=== PATIENT | female | born 1985 | race African-American/Black ===

== ENCOUNTER → 2017-10-26 | Outpatient (CLI) | payer OTHER ==
[~2017-10-26] MED LIST: ALBU90OI INH; AMOX500 PO; BENZ100A PO; Bactrim Ds Tab1 EACH PO; Bactroban22 GM TOP; CEPH500 PO; Cleocin HCl300 MG PO; FLUC150A PO; Flexeril 10 mg10 MG PO; HYDACE5 PO; IBUP800 PO; Motrin600 MG PO; Naprosyn500 MG PO; PENVK500 PO; PRED10 PO; PROCODE120 PO; PSEU120ER PO; Percocet 5-3251 EACH PO; Phenergan Vc-C120 ML PO; Prednisone20 MG PO; Pyridium200 MG PO; RXHYDACE PO; RXTRAM50 PO; TRAM50 PO; TRIM250 PO; Ultram50 MG PO; Zofran Odt4 MG SL; [UNRECOGNIZED DRUG - REMARK]
[2017-10-27 12:44] LABS: Appearance, Urine Cloudy (Clear); Bilirubin, Urine Neg (Neg); Blood, Urine 2+ (Neg); Color, Urine Yellow (P-Yellow); Glucose Qualitative, Urine Neg (Neg); Ketones, Urine Neg (Neg); Leukocyte Esterase, Urine 3+ (Neg); Nitrite, Urine Neg (Neg); Protein, Urine Neg (Neg); Specific Gravity, Urine 1.025 (1.003-1.022); Urobilinogen, Urine NORM (Normal)
[2017-10-27 13:08] LABS: Red Blood Cells, Urine 0-2 /hpf (0-2)
[2017-10-27 13:10] LABS: Amorphous Heavy (0-Heavy)
[2017-10-27 13:11] LABS: Yeast/Fungi Urine Few /hpf
[2017-10-27 13:17] LABS: Squamous Epithelial Cells Mod /hpf (Few)
[2017-10-27 13:18] LABS: Bacteria Few /hpf
[2017-10-27 14:39] LABS: Candida species (DNA Probe) Positive (NEGATIVE); G. vaginalis (DNA Probe) Positive (NEGATIVE); T. vaginalis (DNA Probe) Negative (NEGATIVE)
== END ==
LOC: LAB 18:20
PROVIDERS: Nurse Practitioner Family
DX: N89.8 Other specified noninflammatory disorders of vagina (principal)
CPT/HCPCS: 81001; 87086; 87480; 87510; 87660

== ENCOUNTER 2017-11-19 07:33 | Emergency (ER) | payer OTHER ==
[~2017-11-19] VITALS: Ht 160 cm; Wt 86.2 kg
[~2017-11-19 07:33] MED LIST changes: -PSEU120ER PO; -Phenergan Vc-C120 ML PO; -Prednisone20 MG PO
[2017-11-19] MEDS ORDERED: Phenergan Vc-C120 ML PO (07:56)
[2017-11-19] MEDS ORDERED: PSEU120ER PO (07:56)
[2017-11-19] MEDS ORDERED: Prednisone20 MG PO (07:56)
== END 2017-11-19 08:09 | disposition home or self-care (01) ==
LOC: ER 07:33
DX: J20.9 Acute bronchitis, unspecified (principal); F17.200 Nicotine dependence, unspecified, uncomplicated
CPT/HCPCS: 99283

== ENCOUNTER 2018-02-16 00:22 | Emergency (ER) | payer OTHER ==
[~2018-02-16] VITALS: Ht 160 cm; Wt 86.2 kg
[~2018-02-16 00:22] MED LIST changes: +PSEU120ER PO; +Phenergan Vc-C120 ML PO; +Prednisone20 MG PO
[2018-02-16] MEDS ORDERED: Bactrim Ds Tab1 EACH PO (01:53)
== END 2018-02-16 02:06 | disposition home or self-care (01) ==
LOC: ER 00:22
DX: L03.113 Cellulitis of right upper limb (principal); Z79.2 Long term (current) use of antibiotics; F17.200 Nicotine dependence, unspecified, uncomplicated
CPT/HCPCS: 90471; 90714; 99283

== ENCOUNTER 2018-12-03 23:03 | Emergency (ER) | payer OTHER ==
[~2018-12-03] VITALS: Ht 160 cm; Wt 99.8 kg
== END 2018-12-04 00:56 | disposition home or self-care (01) ==
LOC: ER 23:03
DX: S76.102A Unspecified injury of left quadriceps muscle, fascia and tendon, initial encounter (principal); M25.511 Pain in right shoulder; F17.200 Nicotine dependence, unspecified, uncomplicated; V43.52XA Car driver injured in collision with other type car in traffic accident, initial encounter
CPT/HCPCS: 29505; 73010; 73562-LT; 96372-59; 99284-25; J1885

== ENCOUNTER → 2019-02-11 | Outpatient (CLI) | payer OTHER ==
[~2019-02-11] MED LIST changes: +CRUTCH4 XX
== END | disposition home or self-care (01) ==
LOC: LAB SHORT 18:24 → LAB 18:24
DX: N89.8 Other specified noninflammatory disorders of vagina (principal)
CPT/HCPCS: 87086

== ENCOUNTER 2019-02-25 12:16 | Emergency (ER) | payer OTHER ==
[~2019-02-25] VITALS: Ht 160 cm; Wt 95.2 kg
[~2019-02-25 12:16] MED LIST changes: -CRUTCH4 XX
[2019-02-25] MEDS ORDERED: IBUP800 PO (14:07)
[2019-02-25] MEDS ORDERED: CRUTCH4 XX (14:07)
== END 2019-02-25 14:50 | disposition home or self-care (01) ==
LOC: ER 12:16
DX: S93.402A Sprain of unspecified ligament of left ankle, initial encounter (principal); S20.212A Contusion of left front wall of thorax, initial encounter; S50.312A Abrasion of left elbow, initial encounter; S50.812A Abrasion of left forearm, initial encounter; S70.312A Abrasion, left thigh, initial encounter; V37.5XXA Driver of three-wheeled motor vehicle injured in collision with fixed or stationary object in traffic accident, initial encounter; F17.210 Nicotine dependence, cigarettes, uncomplicated
CPT/HCPCS: 29515; 71101; 73610; 90471; 90714; 99283-25

== ENCOUNTER → 2020-02-22 | Outpatient (CLI) | payer OTHER ==
[~2020-02-22] MED LIST changes: +CRUTCH4 XX
[2020-02-22 15:52] LABS: BASOPHILS ABSOLUTE AUTO 0.08 K/mm3 (0.00-0.23); BASOPHILS PERCENT AUTO 1 % (0-2); EOSINOPHILS ABSOLUTE AUTO 0.59 K/mm3 (0.00-0.68); EOSINOPHILS PERCENT AUTO 6 % (0-6); Hematocrit 42.1 % (33.0-51.0); Hemoglobin 14.3 g/dL (11.5-16.0); IMMATURE GRAN ABSOLUTE AUTO 0.02 K/mm3 (0.00-0.10); IMMATURE GRAN PERCENT AUTO 0 % (0-1); LYMPHOCYTES ABSOLUTE AUTO 2.54 K/mm3 (0.84-5.20); LYMPHOCYTES PERCENT AUTO 24 % (21-46); MONOCYTES ABSOLUTE AUTO 0.61 K/mm3 (0.16-1.47); MONOCYTES PERCENT AUTO 6 % (4-13); Mean Corpuscular HGB 28.7 pg (26.0-34.0); Mean Corpuscular Volume 85 fL (80-100); Mean Platelet Volume 9.4 fL (9.1-12.4); NEUTROPHILS ABSOLUTE AUTO 6.84 K/mm3 (1.96-9.15); NEUTROPHILS PERCENT AUTO 64 % (41-73); Platelet Count 353 K/mm3 (150-400); RDW Coefficient Variation 12.3 % (11.7-14.2); RDW Standard Deviation 37.5 fL (35.1-46.3); Red Blood Cell Count 4.98 M/mm3 (3.80-5.20); White Blood Cell Count 10.68 K/mm3 (4.00-11.30)
[2020-02-22 16:00] LABS: Albumin, Blood 3.7 g/dL (3.4-5.0); Albumin/Globulin Ratio 0.8 (0.8-1.8); Bilirubin, Total 0.3 mg/dL (0.1-1.0); Bun/Creatinine Ratio 12.5 (12.0-20.0); Calcium, Blood 9.2 mg/dL (8.5-10.1); Creatinine, Blood 1.12 mg/dL (0.40-1.00); Globulin, Blood 4.4 g/dL (2.2-4.0); Potassium, Blood 4.5 mmol/L (3.5-5.5); Total Protein, Blood 8.1 g/dL (6.4-8.2)
== END | disposition home or self-care (01) ==
LOC: LAB SHORT 15:45 → LAB EV 15:45
PROVIDERS: Physician Assistant
DX: B37.3 Candidiasis of vulva and vagina (principal); R82.79 Other abnormal findings on microbiological examination of urine
CPT/HCPCS: 80053; 83036; 85025; 87077; 87086; 87186

== ENCOUNTER → 2024-07-14 | Outpatient (CLI) | payer OTHER ==
[2024-07-15 07:42] LABS: Candida Group, PCR NOT DETECTED (NOT DETECT); Candida glabrata-krusei, PCR NOT DETECTED (NOT DETECT)
[2024-07-15 07:54] LABS: Bacterial Vaginosis PCR Positive (NEGATIVE)
== END ==
LOC: LAB 17:39 → LAB SHORT 17:39
PROVIDERS: Family Medicine
DX: N89.8 Other specified noninflammatory disorders of vagina (principal)
CPT/HCPCS: 87481; 87661; 87801